=== PATIENT | female | born 1975 | race Native Hawaiian/Other Pacific Islander ===

== ENCOUNTER 2023-05-06 10:38 | Outpatient (CLI) | payer OTHER ==
[2023-05-06 16:13] LABS: PLATELET COUNT 150 K/uL (152-353)
[2023-05-06 16:27] LABS: POTASSIUM 3.7 mmol/L (3.6-5.2)
== END 2023-05-06 21:52 | disposition home or self-care (01) ==
LOC: LAB 10:38
PROVIDERS: ATTEND Internal Medicine Nephrology
DX: Z99.2 Dependence on renal dialysis (principal); N18.6 End stage renal disease; I12.0 Hypertensive chronic kidney disease with stage 5 chronic kidney disease or end stage renal disease
CPT/HCPCS: 80053; 85027